=== PATIENT | male | born 1955 | race Caucasian/White ===

== ENCOUNTER 2020-05-14 23:49 | Observation (INO) ==
[2020-05-15 01:06] LABS: Basophils # (auto) 0.02 K/uL (0-0.2); Basophils % (auto) 0.3 %; Eosinophils # (auto) 0.33 K/uL (0-0.5); Eosinophils % (auto) 4.6 %; Hematocrit (blood only) 43.8 % (42-52); Hemoglobin 14.3 g/dL (14.0-18.0); Immature Granulocytes # (auto) 0.04 K/uL (0.00-0.02); Immature Granulocytes % (auto) 0.6 %; Lymphocytes # (auto) 1.81 K/uL (1.2-3.4); Lymphocytes % (auto) 25.2 %; Mean Corpuscular Hemoglobin 30.1 pg (25-34); Mean Corpuscular Hgb Conc 32.6 g/dL (32-36); Mean Corpuscular Volume 92.2 fL (80-100); Mean Platelet Volume 11.3 fL (7.4-10.4); Monocytes # (auto) 0.79 K/uL (0.11-0.59); Neutrophils % (auto) 58.3 %; Platelet Count 204 K/uL (130-400); RDW Coefficient of Variation 13.8 % (11.5-14.5); RDW Standard Deviation 46.9 fL (36.4-46.3); Red Blood Count 4.75 M/uL (4.7-6.1); White Blood Count 7.19 K/uL (4.8-10.8)
[2020-05-15 01:17] LABS: Partial Thromboplastin Ratio 0.9; Partial Thromboplastin Time 25.1 Seconds (21.0-31.0); Prothrombin Time 10.5 Seconds (9.0-12.0)
[2020-05-15 01:31] LABS: Aspartate Aminotransferase 34 U/L (15-37); Potassium 4.1 mmol/L (3.5-5.1)
[2020-05-15 01:32] LABS: Alanine Aminotransferase 35 U/L (12-78); Albumin Level 3.8 gm/dl (3.4-5.0); Alkaline Phosphatase 56 U/L (45-117); BUN Creatinine Ratio 12.5 (10-20); Bilirubin,Total 0.5 mg/dl (0.2-1); Blood Urea Nitrogen 19 mg/dl (7-18); Calcium 9.7 mg/dl (8.5-10.1); Carbon Dioxide 30 mmol/L (21-32); Chloride 103 mmol/L (98-107); Creatinine Clr Calc Pharmacy 54.9 ml/min; Est GFR (Non-African American) 47.4; Globulin 3.8 gm/dl (2.5-4.0); Glucose 105 mg/dl (70-99); Lipase 142 U/L (73-393); Sodium 139 mmol/L (136-145); Total Protein 7.6 gm/dl (6.4-8.2); Troponin I < 0.015 ng/ml (0-0.045)
[2020-05-15] MEDS ORDERED: ASPIRIN CHEW 324 MG PO STA (03:14)
--- NOTE | 2020-05-15 03:53 | Emergency Department Note ---
Impression & Plan Substernal chest pain ED Provider Note NAME: TONIA MINAYA AGE: 64 SEX: M ARRIVES VIA: Walk-In INFORMANT: Patient, his ED PROVIDER(S): Tamera Mixon DO CHIEF COMPLAINT: Substernal chest discomfort PLAN: Disposition: [facility] Condition: Good MEDICAL DECISION MAKING: This is a 64-year-old male patient who presents to the emergency department with substernal chest pain. The patient developed the discomfort after eating dinner. The pain radiated to his right jaw. He had some associated pallor. Upon presentation to the emergency department, the discomfort was subsiding. He had a normal EKG and negative troponin. However, the patient has a history of hypertension, hyperlipidemia and a family history of heart disease. [facility] and they will evaluate for further management. Triage Nursing notes reviewed and agree them. Additional history obtained from patient's who is at the bedside. Vital Signs: reviewed and unremarkable Differential diagnosis: GERD, esophageal spasm, STEMI, angina ER treatment provided: Aspirin Diagnostics interpreted by me: ECG: Normal sinus rhythm at a rate of 62. There is no ST segment elevation or signs of ischemia. There is no ectopy Cardiac Monitoring: Normal sinus rhythm at a rate of 64 Laboratory studies: See below Imaging studies: As per my interpretation Chest x-ray: No acute pulmonary infiltrates or consolidation; no cardiomegaly HPI: 64/M arrives for evaluation of substernal chest pain. Patient explains that he ate a pork chop dinner and developed substernal chest pain approximately 15 to 20 minutes afterwards. The pain then radiated up into the right jaw lasted for approximately 2 hours. Patient states that he did not feel well. His states that he looked terrible and was quite pale. He has never had symptoms like this in the past. He did not feel short of breath or nauseated. ROS: See above HPI for pertinent positives & negatives. A total of 10 systems reviewed and were otherwise negative. PAST MEDICAL HISTORY:Hyperlipidemia; hypertension PAST SURGICAL HISTORY:Removal of vocal cord polyps FAMILY HISTORY:Patient's mother had heart disease in her 60s and underwent CABG SOCIAL HISTORY:Patient lives with his ; he is a retired sales executive insurance HOME MEDICATIONS:See list ALLERGIES:None VITALS:See Below PHYSICAL EXAMINATION: HEENT: Head - normocephalic and atraumatic Pupils are equal, round, and reactive to light. Extraocular eye muscles are intact, and sclera are anicteric. Nose - moist nasal mucosa without discharge. Mouth - moist buccal mucosa. Oropharynx is nonerythematous and there is no tonsillar exudate or edema noted. Neck: Supple; no JVD, nuchal rigidity, cervical lymphadenopathy, or auscultated bruits. Heart: Regular rate and rhythm. There is a normal S1 and S2 with no murmurs, clicks, or gallops appreciated. Lungs: Clear to auscultation bilaterally with no wheezes, rales, or rhonchi. Abdomen: Soft, completely nontender, nondistended, with good bowel sounds. There are no palpable pulsatile masses or hepatosplenomegaly. There is no guarding, rigidity, or rebound noted. Extremities: No evidence of cyanosis, clubbing, or edema. There are easily palpable peripheral pulses. Skin: warm and dry with good turgor and no rashes. ED COURSE: Times/Reassessments: 0030: The patient was evaluated in room B2. A complete history and physical was performed. A twelve-lead EKG was obtained. An IV lock was initiated and labs were drawn as above. An order was placed for continuous cardiac monitoring. The patient was in a normal sinus rhythm at a rate of 81. The patient describes the pain as coming and going. He had a portable chest x- ray as described above. 0215: I reviewed the results of the laboratory studies and x-ray with the patient and his . Patient was given a dose of oral aspirin. I [facility] the [facility] and they will evaluate for further management. Tamera Mixon DO Past Med/Surg History Medical History (Updated 05/16/20 @ 07:35 by Tamera Mixon DO) Diverticulosis Hyperlipidemia Hypertension Left ventricular hypertrophy moderate LVH per echo 05/15/20 MTHFR mutation Prediabetes Vitamin D deficiency Social History Smoking Status: Former smoker Smoking End Date: 30 years ago; Hx Alcohol Use: Yes Hx Substance Use: No Preferred Language: Lithuanian Communication Ability: Effective Resolution Agent Required: No Beliefs That Will Affect Care: Gnosticism Gnosticism Beliefs: Rastafari Current Living Situation: Spouse Feels Safe at Home: Yes Allergies Allergies Allergy/AdvReac Type Severity Reaction Status Date / Time No Known Allergies Allergy Unverified 05/15/20 02:11 Home Meds Home Medications Medication Instructions Recorded Confirmed cholecalciferol (vitamin D3) 25 mcg PO DAILY 05/15/20 05/15/20 [Vitamin D3] folic acid 1 mg PO DAILY 05/15/20 05/15/20 lisinopril 10 mg PO DAILY 05/15/20 05/15/20 Results & Data (ED) Vital Signs Vital Signs - 24 hr 05/14/20 23:58 05/15/20 00:06 05/15/20 00:51 Temperature 36.7 C Temperature Source Oral Pulse Rate 76 Pulse Rate [Apical] Respiratory Rate 16 Blood Pressure 167/97 H Blood Pressure [Left Arm] Blood Pressure Mean 120 Blood Pressure Mean [Left Arm] Pulse Oximetry 96 98 98 Oxygen Delivery Method Room Air Room Air Room Air Sepsis Recent Fever Within 48 Hours No Sepsis New/Unexplained Change in Mental Status No Sepsis Action Taken by Nursing No Action Required 05/15/20 01:00 05/15/20 02:00 05/15/20 03:18 Temperature Temperature Source Pulse Rate Pulse Rate [Apical] 70 69 60 Respiratory Rate 18 18 18 Blood Pressure Blood Pressure [Left Arm] 127/82 132/84 117/77 Blood Pressure Mean Blood Pressure Mean [Left Arm] 97 100 90 Pulse Oximetry 100 95 96 Oxygen Delivery Method Room Air Room Air Room Air Sepsis Recent Fever Within 48 Hours Sepsis New/Unexplained Change in Mental Status Sepsis Action Taken by Nursing Laboratory Data Result diagrams: 05/15/20 06:56 05/15/20 06:56 Lab Results 05/15/20 05/15/20 05/15/20 Range/Units 00:13 00:13 00:13 WBC 7.19 (4.8-10.8) K/uL RBC 4.75 (4.7-6.1) M/uL Hgb 14.3 (14.0-18.0) g/dL Hct 43.8 (42-52) % MCV 92.2 (80-100) fL MCH 30.1 (25-34) pg MCHC 32.6 (32-36) g/dL RDW Std Deviation 46.9 H (36.4-46.3) fL RDW Coeff of Isaac 13.8 (11.5-14.5) % Plt Count 204 (130-400) K/uL MPV 11.3 H (7.4-10.4) fL Immature Gran % (Auto) 0.6 % Neut % (Auto) 58.3 % Lymph % (Auto) 25.2 % Starke % (Auto) 11.0 % Eos % (Auto) 4.6 % Baso % (Auto) 0.3 % Neut # (Auto) 4.20 (1.4-6.5) K/uL Lymph # (Auto) 1.81 (1.2-3.4) K/uL Starke # (Auto) 0.79 H (0.11-0.59) K/uL Eos # (Auto) 0.33 (0-0.5) K/uL Baso # (Auto) 0.02 (0-0.2) K/uL Immature Gran # (Auto) 0.04 H (0.00-0.02) K/uL PT 10.5 (9.0-12.0) Seconds INR 1.0 (0.9-1.1) APTT 25.1 (21.0-31.0) Seconds PTT Ratio 0.9 Sodium 139 (136-145) mmol/L Potassium 4.1 (3.5-5.1) mmol/L Chloride 103 (98-107) mmol/L Carbon Dioxide 30 (21-32) mmol/L Anion Gap 7.0 (3-11) BUN 19 H (7-18) mg/dl Creatinine 1.51 H (0.6-1.4) mg/dl Est Cr Clr Drug Dosing 54.9 ml/min Est GFR ( Amer) 55.0 Est GFR (Non-Af Amer) 47.4 BUN/Creatinine Ratio 12.5 (10-20) Glucose 105 H (70-99) mg/dl Calcium 9.7 (8.5-10.1) mg/dl Total Bilirubin 0.5 (0.2-1) mg/dl AST 34 (15-37) U/L ALT 35 (12-78) U/L Alkaline Phosphatase 56 (45-117) U/L Troponin I < 0.015 (0-0.045) ng/ml Total Protein 7.6 (6.4-8.2) gm/dl Albumin 3.8 (3.4-5.0) gm/dl Globulin 3.8 (2.5-4.0) gm/dl Albumin/Globulin Ratio 1.0 (0.9-2) Lipase 142 (73-393) U/L Specimen Hemolysis Administered Medications Discontinued Medications Aspirin (Aspirin Chew 324 Mg) 324 mg PO NOW STA Stop: 05/15/20 03:15 Last Admin: 05/15/20 03:19 Dose: 324 mg Documented by: [id number] Aspirin (Aspirin 81 Mg Ectab) [facility] [place] [facility] [place] Stop: 06/14/20 08:59 Last Admin: 05/15/20 08:06 Dose: 81 mg Documented by: [id number] Folic Acid (Folic Acid 1 Mg Tab) 1 mg PO DAILY ROBERTO Stop: 06/14/20 08:59 Last Admin: 05/15/20 08:06 Dose: 1 mg Documented by: [id number] Sodium Chloride (Nss 1000ml) 1,000 mls @ 125 mls/hr IV .Q8H ROBERTO Stop: 06/14/20 04:51 Last Admin: 05/15/20 14:09 Dose: Not Given Documented by: [id number] Infusion: 05/15/20 14:09 Dose: 0 mls/hr Documented by: [id number] Admin: 05/15/20 05:12 Dose: 125 mls/hr Documented by: [id number] Perflutren Lipid Microsphere (Perflutren Lipid Microsphere (Definity)) 2 ml IV ONCE ONE Stop: 05/15/20 09:27 Last Admin: 05/15/20 09:27 Dose: 2 ml Documented by: [id number] Vitamin D (Cholecalciferol 1,000 Units 25 Mcg Tab) 1,000 units PO DAILY ROBERTO Stop: 06/14/20 08:59 Last Admin: 05/15/20 08:06 Dose: 1,000 units Documented by: [id number] Discharge Plan Visit Data Chief Complaint: Cardiac Assessment Stated Complaint: PAIN IN CENTER OF CHEST INTO JAW ED Provider: Tamera Mixon Discharge Problem: Substernal chest pain Patient Disposition: Admitted As Inpatient Discharge Instructions Interventions: ED Discharge Assessment Last Done: 05/15/20 04:29
[2020-05-15] MEDS ORDERED: ACETAMINOPHEN 325 MG TAB PO PRN (04:52)
[2020-05-15] MEDS ORDERED: ONDANSETRON INJ 2 MG/ML 2 ML VIAL IV PRN (04:52)
[2020-05-15] MEDS ORDERED: NITROGLYCERIN SL 0.4 MG/TAB TAB SL PRN (04:52)
[2020-05-15] MEDS: SODIUM CHLORIDE 0.9% 1000ML 1,000 ML IV SCH ×2 (05:12→14:09)
--- NOTE | 2020-05-15 05:25 | History and Physical Report ---
DATE OF ADMISSION: 05/15/2020 CHIEF COMPLAINT: Chest pain. HISTORY OF PRESENT ILLNESS: This is a 64-year-old male with past medical history significant for MTHFR gene mutation, history of hyperlipidemia, prediabetes, hypertension, vitamin D deficiency, history of diverticulosis, who presents with chest pain. The patient says after eating supper, he noticed chest discomfort in the lower part of the chest, a dull aching pain, 6/10 in severity, was radiating into his right jaw. His thought he looked pale and they decided to come to the ER. In the ER, the pain subsided on its own. Currently resting comfortably and hemodynamically stable. No associated shortness of breath, no sweating, no nausea, no headache, no dizziness. Denies any blurred visions, no earache, no runny nose, no sore throat, no cough, no fever, no chills, no abdominal pain. Normal bowel and bladder movements. Otherwise, ambulating fine, eating and drinking okay. He went to work today and he did not eat a whole day and came in the evening and when he was eating supper this episode happened. ALLERGIES: No known drug allergies. PAST MEDICAL HISTORY: As mentioned above. PAST SURGICAL HISTORY: Dental surgery, removal of tonsillectomy. MEDICATIONS: Vitamin D 25 mcg p.o. daily, folic acid 1 mg p.o. daily, lisinopril 10 mg p.o. daily. FAMILY HISTORY: No family history in file. SOCIAL HISTORY: Former smoker, quit in 1995. Alcohol 1-2 standard drinks of alcohol per week. No drug use. REVIEW OF SYSTEMS: As per HPI. Rest of the review of systems negative. PHYSICAL EXAMINATION: GENERAL: The patient is obese, not in acute distress. VITAL SIGNS: Temperature 36.7, pulse 60, respiratory rate 18, blood pressure 117/77, oxygen 96% on room air. HEENT: Pupils equal, round, and reactive to light. Oral mucosa moist. NECK: No JVD seen. Supple. CARDIOVASCULAR: S1, S2 heard, regular rate and rhythm, no murmur, no gallop. RESPIRATORY SYSTEM: Normal AP diameter. No accessory muscle use. No wheezing, no crackles. ABDOMEN: Soft, bowel sounds present, nontender. No distention. CENTRAL NERVOUS SYSTEM: Cranial nerves II-XII grossly intact. Nonfocal. EXTREMITIES: No edema, no erythema. LABORATORY DATA: WBC 7.1, hemoglobin 14.3, hematocrit 43.8, platelets 204. PT 10.5, INR 1, APTT 25.1. Sodium 139, potassium 4.1, chloride 103, bicarb 30, BUN 19, creatinine 1.5, serum glucose 105, calcium 9.7, total bilirubin 0.5, AST 34, ALT 35, alkaline phosphatase 56, troponin I less than 0.015. Lipase 142. IMAGING DATA: Chest x-ray, no acute findings seen. EKG: Normal sinus rhythm at a rate of 62. No previous ECG available. ASSESSMENT AND PLAN: This is a 64-year-old male who presents with chest pain. 1. Chest pain, rule out acute coronary syndrome. Risk factors of obesity, prediabetes, history of hyperlipidemia, and age. Initial workup is negative. We will observe in [employer], serial enzymes, echocardiogram. Consult cardiology and keep him n.p.o. until seen by cardiology. 2. Prediabetes. Will Follow hemoglobin A1c levels. 3. Hyperlipidemia, Will follow fasting lipid profile. 4. Acute kidney injury. Baseline creatinine is 0.8, currently creatinine of 1.5. We will hold the lisinopril. Will Give him fluids. Follow repeat labs in the a.m. 5. Hypertension, he is on lisinopril which is on hold for acute kidney injury. We will monitor the blood pressure in the hospital. 6. Deep venous thrombosis prophylaxis, sequential compression devices. 7. Disposition: Observation in [employer]. Expect to discharge home and follow with his family doctor. Level 1 full code. MTDD
[2020-05-15 07:28] LABS: Basophils # (auto) 0.02 K/uL (0-0.2); Basophils % (auto) 0.3 %; Eosinophils # (auto) 0.41 K/uL (0-0.5); Eosinophils % (auto) 6.6 %; Hematocrit (blood only) 42.1 % (42-52); Hemoglobin 13.8 g/dL (14.0-18.0); Immature Granulocytes # (auto) 0.01 K/uL (0.00-0.02); Immature Granulocytes % (auto) 0.2 %; Lymphocytes # (auto) 1.67 K/uL (1.2-3.4); Lymphocytes % (auto) 26.9 %; Mean Corpuscular Hemoglobin 30.3 pg (25-34); Mean Corpuscular Hgb Conc 32.8 g/dL (32-36); Mean Corpuscular Volume 92.5 fL (80-100); Mean Platelet Volume 10.9 fL (7.4-10.4); Monocytes # (auto) 0.79 K/uL (0.11-0.59); Monocytes % (auto) 12.7 %; Neutrophils % (auto) 53.3 %; Platelet Count 170 K/uL (130-400); RDW Coefficient of Variation 13.8 % (11.5-14.5); RDW Standard Deviation 46.7 fL (36.4-46.3); Red Blood Count 4.55 M/uL (4.7-6.1)
[2020-05-15 07:38] LABS: Estimated Average Glucose 117 mg/dl; Hemoglobin A1C 5.7 % (4.5-5.6)
[2020-05-15 08:00] LABS: BUN Creatinine Ratio 20.9 (10-20); Blood Urea Nitrogen 21 mg/dl (7-18); Calcium 9.1 mg/dl (8.5-10.1); Carbon Dioxide 26 mmol/L (21-32); Chloride 107 mmol/L (98-107); Est GFR (African American) 88.4; Est GFR (Non-African American) 76.2; Glucose 99 mg/dl (70-99); Magnesium 2.2 mg/dl (1.8-2.4); Potassium 3.7 mmol/L (3.5-5.1); Sodium 141 mmol/L (136-145)
[2020-05-15 08:05] LABS: Chol HDL Ratio 5; Cholesterol 267 mg/dl (0-200); HDL Cholesterol 52 mg/dl; LDL Cholesterol Calculated 175 mg/dl; Triglycerides 202 mg/dl (0-150); Troponin I < 0.015 ng/ml (0-0.045); VLDL Cholesterol 40 mg/dl
[2020-05-15] MEDS ORDERED: CHOLECALCIFEROL 1,000 UNITS 25 MCG TAB PO SCH (09:00)
[2020-05-15] MEDS ORDERED: FOLIC ACID 1 MG TAB PO SCH (09:00)
[2020-05-15] MEDS ORDERED: ASPIRIN 81 MG ECTAB PO SCH (09:00)
[2020-05-15] MEDS ORDERED: PERFLUTREN LIPID MICROSPHERE (DEFINITY) IV ONE (09:26)
--- NOTE | 2020-05-15 10:03 | XRay Report ---
SINGLE VIEW CHEST CLINICAL HISTORY: Atypical chest pain. FINDINGS: An AP, portable, upright chest radiograph is obtained. No prior studies are available for c omparison at the time of dictation. The cardiomediastinal silhouette is unremarkable noting atherosc lerotic calcification of the thoracic aorta. There is mild elevation of right hemidiaphragm and bibas ilar atelectasis. No airspace consolidation or large pleural effusion is identified. No pneumothorax is seen. The bony thorax is grossly intact. IMPRESSION: No active disease in the chest. ACT 112: Negative or not required by law. Electronically signed by: Adama Rm M.D. 05/15/2020 10:02 AM
--- NOTE | 2020-05-15 10:50 | Cardiology Consultation ---
Date of Consultation May 15, 2020 Assessment & Plan (1) Precordial chest pain: Patient is a 64-year-old male with multiple underlying cardiac vascular risk factors who developed substernal and epigastric pain radiating to his right jaw after a meal last evening. Initial cardiac enzymes and EKGs do not reflect acute injury. Preliminary echocardiogram demonstrates preserved LV function. No further symptoms overnight Plan: We will refer for stress echocardiogram today. Will need to treat underlying risk factors with further recommendations pending results of testing (2) Hyperlipidemia: (3) HTN (hypertension): History of Present Illness Reason for Consultation: Chest pain Requesting Physician: Dr. Goodman Attending Physician: Pop Goodman MD History of Present Illness Patient is a 64-year-old male without prior history of cardiac disease but underlying cardiac risk factors of prediabetes, hypertension, hyperlipidemia family history of coronary disease with mother undergoing coronary bypass grafting. He presents this admission having developed postprandial substernal and epigastric pain radiating to his right jaw yesterday evening. Symptoms lasted approximately 1 hour before waning. Initial ER evaluation revealed normal EKG and cardiac enzymes. He has had no further chest pains or discomfort overnight. No prior history of indigestion or heartburn. No prior similar symptoms or complaints. Generally active walks on a daily basis without specific limitation. No fevers chills unexplained infections. No acute weight loss or gain. No bleeding difficulties no melena medication dysuria hematuria. Allergies Allergy/AdvReac Type Severity Reaction Status Date / Time No Known Allergies Allergy Unverified 05/15/20 02:11 Home Medications Home Medications Medication Instructions Recorded Confirmed Type cholecalciferol (vitamin D3) 25 mcg PO DAILY 05/15/20 05/15/20 History [Vitamin D3] folic acid 1 mg PO DAILY 05/15/20 05/15/20 History lisinopril 10 mg PO DAILY 05/15/20 05/15/20 History Patient History Social History Smoking Status: Former smoker Smoking End Date: 30 years ago; Hx Alcohol Use: Yes Hx Substance Use: No Preferred Language: Vietnamese Communication Ability: Effective Recreation Therapy Teacher Required: No Beliefs That Will Affect Care: Rastafari Rastafari Beliefs: Mormon Current Living Situation: Spouse Feels Safe at Home: Yes Review of Systems Review of Systems: All systems reviewed & are unremarkable except as noted in HPI & below Physical Exam Constitutional: WD/WN, vitals as above + obese Eyes: PERRL, conjunctivae normal, anicteric sclerae ENMT: external ear and nose normal, oropharynx normal Neck: trachea midline, no thyromegaly Respiratory: normal respiratory effort, lungs clear to auscultation Cardiovascular: Rate/Rhythm: regular rate and regular rhythm Heart Sounds: normal S1 and normal S2; no gallop and no murmur Palpation: normal PMI Vessels: normal carotid upstroke and radial pulses present; no JVD and no carotid bruit Extremities: no edema Gastrointestinal (Abdomen): normal bowel sounds, soft, nontender, no hepatosplenomegaly Musculoskeletal: no cyanosis or clubbing, extremities motor strength 5/5 Skin: no rashes, warm and dry Neurologic: PERRL, EOMI, accommodation nl, no face palsy, no dysarthria Psychiatric: A+Ox3, euthymic affect Results & Data ([facility]) Vital Signs (Past 12 Hours) Vital Signs Temp Pulse Pulse Pulse Resp BP BP 05/15/20 07:32 36.4 C L 70 18 139/88 05/15/20 07:28 61 05/15/20 06:09 52 L 05/15/20 04:54 36.4 C L 67 18 134/86 05/15/20 04:26 67 18 114/78 05/15/20 03:18 60 18 117/77 05/15/20 02:00 69 18 132/84 05/15/20 01:00 70 18 127/82 05/15/20 00:51 05/15/20 00:06 05/14/20 23:58 36.7 C 76 16 167/97 H Pulse Ox 05/15/20 07:32 96 05/15/20 07:28 05/15/20 06:09 05/15/20 04:54 96 05/15/20 04:26 96 05/15/20 03:18 96 05/15/20 02:00 95 05/15/20 01:00 100 05/15/20 00:51 98 05/15/20 00:06 98 05/14/20 23:58 96 Laboratory Results Laboratory Results - last 24 hr 05/15/20 05/15/20 05/15/20 00:13 00:13 00:13 WBC 7.19 RBC 4.75 Hgb 14.3 Hct 43.8 MCV 92.2 MCH 30.1 MCHC 32.6 RDW Std Deviation 46.9 H RDW Coeff of Isaac 13.8 Plt Count 204 MPV 11.3 H Immature Gran % (Auto) 0.6 Neut % (Auto) 58.3 Lymph % (Auto) 25.2 Parke % (Auto) 11.0 Eos % (Auto) 4.6 Baso % (Auto) 0.3 Neut # (Auto) 4.20 Lymph # (Auto) 1.81 Parke # (Auto) 0.79 H Eos # (Auto) 0.33 Baso # (Auto) 0.02 Immature Gran # (Auto) 0.04 H PT 10.5 INR 1.0 APTT 25.1 PTT Ratio 0.9 Sodium 139 Potassium 4.1 Chloride 103 Carbon Dioxide 30 Anion Gap 7.0 BUN 19 H Creatinine 1.51 H Est Cr Clr Drug Dosing 54.9 Est GFR ( Amer) 55.0 Est GFR (Non-Af Amer) 47.4 BUN/Creatinine Ratio 12.5 Glucose 105 H Estimat Average Glucose Hemoglobin A1c Calcium 9.7 Magnesium Total Bilirubin 0.5 AST 34 ALT 35 Alkaline Phosphatase 56 Troponin I < 0.015 Total Protein 7.6 Albumin 3.8 Globulin 3.8 Albumin/Globulin Ratio 1.0 Triglycerides Cholesterol LDL Cholesterol, Calc VLDL Cholesterol, Calc HDL Cholesterol Cholesterol/HDL Ratio Lipase 142 Specimen Hemolysis Hepatitis C Ab Screen 05/15/20 05/15/20 05/15/20 06:56 06:56 06:56 WBC 6.20 RBC 4.55 L Hgb 13.8 L Hct 42.1 MCV 92.5 MCH 30.3 MCHC 32.8 RDW Std Deviation 46.7 H RDW Coeff of Isaac 13.8 Plt Count 170 MPV 10.9 H Immature Gran % (Auto) 0.2 Neut % (Auto) 53.3 Lymph % (Auto) 26.9 Parke % (Auto) 12.7 Eos % (Auto) 6.6 Baso % (Auto) 0.3 Neut # (Auto) 3.30 Lymph # (Auto) 1.67 Parke # (Auto) 0.79 H Eos # (Auto) 0.41 Baso # (Auto) 0.02 Immature Gran # (Auto) 0.01 PT INR APTT PTT Ratio Sodium 141 Potassium 3.7 Chloride 107 Carbon Dioxide 26 Anion Gap 8.0 BUN 21 H Creatinine 1.02 Est Cr Clr Drug Dosing 81.0 Est GFR ( Amer) 88.4 Est GFR (Non-Af Amer) 76.2 BUN/Creatinine Ratio 20.9 H Glucose 99 Estimat Average Glucose 117 Hemoglobin A1c 5.7 H Calcium 9.1 Magnesium 2.2 Total Bilirubin AST ALT Alkaline Phosphatase Troponin I < 0.015 Total Protein Albumin Globulin Albumin/Globulin Ratio Triglycerides 202 H Cholesterol 267 H LDL Cholesterol, Calc 175 VLDL Cholesterol, Calc 40 HDL Cholesterol 52 Cholesterol/HDL Ratio 5 Lipase Specimen Hemolysis Hepatitis C Ab Screen 05/15/20 06:56 WBC RBC Hgb Hct MCV MCH MCHC RDW Std Deviation RDW Coeff of Isaac Plt Count MPV Immature Gran % (Auto) Neut % (Auto) Lymph % (Auto) Parke % (Auto) Eos % (Auto) Baso % (Auto) Neut # (Auto) Lymph # (Auto) Parke # (Auto) Eos # (Auto) Baso # (Auto) Immature Gran # (Auto) PT INR APTT PTT Ratio Sodium Potassium Chloride Carbon Dioxide Anion Gap BUN Creatinine Est Cr Clr Drug Dosing Est GFR ( Amer) Est GFR (Non-Af Amer) BUN/Creatinine Ratio Glucose Estimat Average Glucose Hemoglobin A1c Calcium Magnesium Total Bilirubin AST ALT Alkaline Phosphatase Troponin I Total Protein Albumin Globulin Albumin/Globulin Ratio Triglycerides Cholesterol LDL Cholesterol, Calc VLDL Cholesterol, Calc HDL Cholesterol Cholesterol/HDL Ratio Lipase Specimen Hemolysis Hepatitis C Ab Screen Neg
--- NOTE | 2020-05-15 12:28 | Communication Note ---
Date of Service: May 15, 2020 Date of Service: May 15, 2020 See full consult. Patient was referred and underwent stress echocardiogram. Patient exercised for 7 minutes on a standard Mahesh protocol for an estimate met level of 9.0 METS. Patient achieved 100% age-predicted maximal heart rate without cardiac symptoms, chest pain or inordinate dyspnea. Blood pressure response was hypertensive No ischemic changes by EKG or echocardiographic criteria. Discussed results in detail with the patient. Findings suggest noncardiac source of current complaints but patient with multiple cardiac risk factors. Recommendations: Patient to return if any recurrence of symptoms Recommended treatment hyperlipidemia. Patient notes prior statin intolerance would recommend rosuvastatin 5 mg every other day with close clinical follow-up with primary care physician Will require management of underlying hypertension. Low threshold for increasing EDGAR inhibitor or adding beta-jb given left ventricular hypertrophy present
--- NOTE | 2020-05-15 13:58 | Hospitalist Progress Note ---
Date of Service May 15, 2020 Assessment & Plan (1) Precordial chest pain: Experienced epigastric / lower chest pain after eating pork chops. Came to ED for evaluation. No acute EKG changes. Troponin negative. Seen in consultation by Cardiology. Acute GA ruled out. No stress-induced ischemia on treadmill stress echo at adequate workload. Multiple risk factors for CAD. Ongoing risk factor modification and further evaluation as necessary for recurrent worrisome symptoms. Consider GI evaluation if recurrence of symptoms associated with meals. (2) Hypertension: History of hypertension, treated with lisinopril. Lisinopril held at the time of admission due to elevated creatinine. Echo showed moderate LVH. Creatinine returned to normal in a few hours. Resume lisinopril. Consider addition of beta jb. Follow and titrate Rx. (3) Left ventricular hypertrophy: Echo showed moderate LVH. Management of hypertension as noted above. (4) Renal insufficiency: Initial creatinine 1.51. Received IV fluids. Repeat 1.02. Follow. (5) Hyperlipidemia: History of dyslipidemia. Statin therapy attempted in past, but not tolerated due to myalgias. LDL-c = 175. Another trial of low dose statin (e.g., low dose rosuvastatin every other day) recommended. Patient will consider and discuss further with PCP. (6) Prediabetes: FBS 99. Hgb A1c 5.8. Follow. (7) DVT prophylaxis: SCD's ordered. (8) Discharge planning issues: Discharged to home. Internal Medicine follow-up with Dr. Vega. Admission and Anticipated Discharge Date Admission Date: May 15, 2020 Subjective Admitted during the night for evaluation of chest pain. Feels well. No further chest pain. No SOB, nausea, vomiting. Seen in consultation by Cardiology. Acute GA ruled out. No stress-induced ischemia on treadmill stress echo at adequate workload. Would like to be discharged. Results & Data Results & Data ([facility]) Vital Signs (Past 12 Hours) Vital Signs Temp Pulse Pulse Pulse Resp BP Pulse Ox 05/15/20 13:07 36.7 C 81 18 124/84 96 05/15/20 12:00 36.7 C 81 18 124/84 96 05/15/20 07:32 36.4 C L 70 18 139/88 96 05/15/20 07:28 61 05/15/20 06:09 52 L 05/15/20 04:54 36.4 C L 67 18 134/86 96 05/15/20 04:26 67 18 114/78 96 05/15/20 03:18 60 18 117/77 96 05/15/20 02:00 69 18 132/84 95
--- NOTE | 2020-05-15 16:51 | Electrocardiogram Report ---
Test Reason : Blood Pressure : / mmHG Vent. Rate : 062 BPM Atrial Rate : 062 BPM P-R Int : 174 ms QRS Dur : 074 ms QT Int : 420 ms P-R-T Axes : 062 -09 009 degrees QTc Int : 426 ms Normal sinus rhythm Normal ECG No previous ECGs available Confirmed by Dandy Che ([id number]) on 05/15/2020 4:51:36 PM Referred By: REFERRED SELF Confirmed By:Manjinder Che
--- NOTE | 2020-05-16 06:54 | Discharge Summary ---
Date of Service Date of Admission: 05/15/20 Date of Discharge: 05/15/20 Admission HPI Per Admitting Provider This is a 64-year-old male with past medical history significant for MTHFR gene mutation, history of hyperlipidemia, prediabetes, hypertension, vitamin D deficiency, history of diverticulosis, who presents with chest pain. The patient says after eating supper, he noticed chest discomfort in the lower part of the chest, a dull aching pain, 6/10 in severity, was radiating into his right jaw. His thought he looked pale and they decided to come to the ER. In the ER, the pain subsided on its own. Currently resting comfortably and hemodynamically stable. No associated shortness of breath, no sweating, no nausea, no headache, no dizziness. Denies any blurred visions, no earache, no runny nose, no sore throat, no cough, no fever, no chills, no abdominal pain. Normal bowel and bladder movements. Otherwise, ambulating fine, eating and drinking okay. He went to work today and he did not eat a whole day and came in the evening and when he was eating supper this episode happened. Principal Diagnosis chest pain, acute CA ruled out Discharge Data Allergies Allergy/AdvReac Type Severity Reaction Status Date / Time No Known Allergies Allergy Unverified 05/15/20 02:11 Consultations 05/15/20 02:44 ED Decision to Admit Stat 05/15/20 08:00 Consult Cardiology Routine Hospital Course (1) Precordial chest pain: Experienced epigastric / lower chest pain after eating pork chops. Came to ED for evaluation. No acute EKG changes. Troponin negative. Seen in consultation by Cardiology. Acute CA ruled out. No stress-induced ischemia on treadmill stress echo at adequate workload. Multiple risk factors for CAD. Ongoing risk factor modification and further evaluation as necessary for rec urrent worrisome symptoms. Consider GI evaluation if recurrence of symptoms associated with meals. (2) Hypertension: History of hypertension, treated with lisinopril. Lisinopril held at the time of admission due to elevated creatinine. Echo showed moderate LVH. Creatinine returned to normal in a few hours. Resume lisinopril. Consider addition of beta jb. Follow and titrate Rx. (3) Left ventricular hypertrophy: Echo showed moderate LVH. Management of hypertension as noted above. (4) Renal insufficiency: Initial creatinine 1.51. Received IV fluids. Repeat 1.02. Follow. (5) Hyperlipidemia: History of dyslipidemia. Statin therapy attempted in past, but not tolerated due to myalgias. LDL-c = 175. Another trial of low dose statin (e.g., low dose rosuvastatin every other day) recommended. Patient will consider and discuss further with PCP. (6) Prediabetes: FBS 99. Hgb A1c 5.8. Follow. (7) DVT prophylaxis: SCD's ordered. (8) Discharge planning issues: Discharged to home. Internal Medicine follow-up with Dr. Vega. Total Time Total Time Spent Total Time Spent (In Minutes): 30 Discharge Plan Discharge Items Patient Disposition: Home - Self-Care Reason For Visit: CHEST PAIN Discharge Diagnosis: chest pain- no sign of heart attack Activity: Resume your previous activity Non-emergency contact: Primary Care Provider and Hospitalist Call non-emergency contact if: you have any medication questions and your symptoms worsen Follow-up/Referrals: David Vega MD [Primary Care Provider] - (05/25/2020 11:00 AM David Vega MD) Diet: Heart Healthy Addtl Attending Provider Instructions: MEDICATION CHANGES: None at this time. SUMMARY OF TEST RESULTS: No sign of heart attack. Echocardiogram (ultrasound of heart) showed moderate thickening of heart muscle probably due to high blood pressure. Stress test did no show any sign of severe blockage in the coronary arteries. Fasting blood sugar was 99. Hemoglobin A1c was 5.7. Total cholesterol was 267. LDL cholesterol was 175. HDL cholesterol was 52. Triglyceride level was 202. RECOMMENDATIONS FOR FOLLOW-UP: Please discuss ongoing treatment of blood pressure and high cholesterol with Dr. Vega. Please let Dr. Vega know if you have recurrent discomfort after you eat. OTHER INSTRUCTIONS: Seek medical attention if you have: * temperature above 101 * chest pain or trouble breathing * abdominal pain, nausea, vomiting * diarrhea, dark stools or bloody stools * any unanswered questions or concerns Call 911 if symptoms are severe. Please take good care of yourself. Call if you have any questions or problems. You can reach a [facility] hospitalist on duty at [facility] 24 hours a day by calling [phone]. My cell # is [phone]. Pending Studies at Discharge: No Stand-Alone Forms: My [facility], Smoking Cessation Medications and DC Order Prescriptions: Continued lisinopril 10 mg tablet 10 mg PO DAILY RF: 0 folic acid 1 mg Tablet 1 mg PO DAILY RF: 0 cholecalciferol (vitamin D3) [Vitamin D3] 25 mcg (1,000 unit) Tablet 25 mcg PO DAILY RF: 0 Discharge Orders: Discharge Order (Routine); Ordered 05/15/20 Ordered By: Pop Goodman Admission Data Admit Date/Time: 05/15/20 03:49 Attending Provider: Pop Goodman Admit Provider: Kumar Scott Primary Care Provider: David Vega Other Providers: Kumar Scott ; Jacky Younger ; Jairo Chang ; Lawrence Morse ; Stone Contreras ; Shaun Wiley ; Sergio Laguna ; Dina Grimaldo ; Meghan Prescott ; Nnamdi Sapp Other Interventions: Discharge Summary Assessment (RN) Last Done: 05/15/20 13:07
== END 2020-05-15 14:20 | disposition home or self-care (01) ==
LOC: 2N 23:49 → ED 23:49 → SUATTDRO 05-15 03:49 → 2N 05-15 04:29